=== PATIENT | female | born 1990 | race Caucasian/White ===

== ENCOUNTER 2017-06-15 13:10 | Emergency (ER) | payer MEDICAID ==
[~2017-06-15] VITALS: Ht 165.1 cm; Wt 97.1 kg
[2017-06-15 13:17] VITALS: BP_SYST 131; BP_SYST 136; BP_DIAS 76; BP_DIAS 81
--- NOTE | 2017-06-15 13:23 | NUR ---
PT AMBULATES TO CHAIR B
--- NOTE | 2017-06-15 13:34 | NUR ---
PATIENT PRESENTS TO ED WITH C/O LT FLANK, BACK PAIN X 2 DAYS WITH NUMBNESS/TINGLING ON LT LEG;DENIES N/V/D; DENIES BURNING/FREQUENT URINATION;SKIN IS PINK/WARM/DRY; AAOX4 WITH EVEN AND STEADY GAIT; LUNGS CLEAR BL; HR EVEN AND REGULAR; PT DENIES ANY FEVER, CP, SOB, OR COUGH AT THIS TIME; PATIENT STATES PAIN OF 10/10 AT THIS TIME;PATIENT POSITIONED FOR COMFORT; HOB ELEVATED; BEDRAILS UP X2; BED DOWN. ER MD MADE AWARE OF PT STATUS.
--- NOTE | 2017-06-15 13:52 | NUR ---
DR JOSEPH EVALUATING PT.
[2017-06-15 14:16] VITALS: BP 136/79
== END 2017-06-15 14:16 | disposition home or self-care (01) ==
LOC: MED 13:10
DX: S39.012A Strain of muscle, fascia and tendon of lower back, initial encounter (principal); Z90.89 Acquired absence of other organs; X50.0XXA Overexertion from strenuous movement or load, initial encounter; Y93.89 Activity, other specified; Y92.89 Other specified places as the place of occurrence of the external cause; Y99.8 Other external cause status
CPT/HCPCS: 81025; 99283

== ENCOUNTER 2018-06-06 18:45 | Emergency (ER) | payer MEDICAID, OTHER ==
[~2018-06-06] VITALS: Ht 165.1 cm; Wt 90.7 kg
[2018-06-06 18:53] VITALS: BP 135/92
--- NOTE | 2018-06-06 19:22 | NUR ---
PT AMBULATED TO BED 10
--- NOTE | 2018-06-06 19:40 | NUR ---
PT TO ED WITH C/O POSTERIOR THROBBING HEADACHE X 2 DAYS. PT REPORTS MILD NAUSEA. DENIES VOMTTING. PT DENIES ANY NEURO DEFECITS. PT IS ANSWERING QUESTIONS APPROPRIATLEY. PT PLACED INTO BED, PENDING MD MARAVILLA.
[2018-06-06] MEDS ORDERED: KETOROLAC 30 MG/ML VIAL IM ONE (20:25)
--- NOTE | 2018-06-06 21:00 | NUR ---
STREP SWAB COLLECTED AND WALKED DOWN TO LAB. SPECIMEN GIVEN TO ABDIRASHID.
[2018-06-06 21:41] VITALS: BP 131/86
--- NOTE | 2018-06-06 21:41 | NUR ---
Patient discharged with v/s stable. Written and verbal after care instructions given and explained. Patient alert, oriented and verbalized understanding of instructions. Ambulatory with steady gait. All questions addressed prior to discharge. ID band removed. Patient advised to follow up with PMD. Rx of ACETAMINOPHEN, NAPROSYN given. Patient educated on indication of medication including possible reaction and side effects. Opportunity to ask questions provided and answered.
== END 2018-06-06 21:41 | disposition home or self-care (01) ==
LOC: MED 18:45
DX: R51 Headache (principal); J06.9 Acute upper respiratory infection, unspecified; M54.2 Cervicalgia; G43.909 Migraine, unspecified, not intractable, without status migrainosus; Z90.49 Acquired absence of other specified parts of digestive tract
CPT/HCPCS: 81002; 81025; 87081; 96372; 99283; J1885

== ENCOUNTER 2018-08-06 21:28 | Emergency (ER) | payer OTHER ==
[~2018-08-06] VITALS: Ht 162.6 cm; Wt 100.7 kg
[2018-08-06 21:30] VITALS: BP 135/80
--- NOTE | 2018-08-06 21:32 | NUR ---
TO LOBBY A/W BED AMBULATORY
--- NOTE | 2018-08-06 22:51 | NUR ---
PT AMBULATED TO ER BED 5
--- NOTE | 2018-08-06 23:00 | NUR ---
28/F PRESENTS TO ED, C/O SHARP PAIN STARTING FROM R SIDE OF NECK RADIATING TO R JAW AND R SIDE OF HEAD, PT STATED THAT SHE WOKE UP WITH THE PAIN TODAY. NO OBVIOUS ABNORMALITY/BRUISING/REDNESS NOTED ON SITE. PT DENIES INJURY/TRAUMA. DENIES CP, SOB, N/V. AOX4, SKIN NORMAL WARM AND DRY, RR EVEN AND UNLABORED. DENIES MED HX OR RX. OTC PAIN MED WITHOUT RELIEF.
--- NOTE | 2018-08-06 23:10 | NUR ---
DR. CABRERA BEDSIDE EVALUATING PT
[2018-08-06 23:42] LABS: BASOPHILS % (AUTO) 0.5 % (0.0-2.0); EOSINOPHILS # (AUTO) 0.1 K/uL (0-0.4); EOSINOPHILS % (AUTO) 1.4 % (0.0-4.0); HEMATOCRIT 39.3 % (36-48); HEMOGLOBIN 13.4 g/dL (12.0-16.0); LYMPHOCYTES # (AUTO) 4.1 K/uL (2.5-16.5); LYMPHOCYTES % (AUTO) 42.5 % (20.5-51.1); MEAN CORPUSCULAR HEMOGLOBIN 30 pg (27-31); MEAN CORPUSCULAR HGB CONC 34 g/dL (33-37); MEAN CORPUSCULAR VOLUME 86.8 fL (80-94); MONOCYTES # (AUTO) 0.5 K/uL (0.8-1.0); NEUTROPHILS # (AUTO) 4.9 K/uL (1.8-7.7); NEUTROPHILS % (AUTO) 50.6 % (42.2-75.2); PLATELET COUNT (AUTO) 310 K/uL (140-450); RED BLOOD CELL COUNT(AUTO) 4.52 MIL/uL (4.20-5.40); RED CELL DISTRIBUTION WIDTH 13.2 % (11.6-13.7); WHITE BLOOD COUNT (AUTO) 9.7 K/uL (4.8-10.8)
[2018-08-06 23:49] LABS: ANION GAP 12.1 (8-16); CARBON DIOXIDE 26.3 mmol/L (21-32); CREATININE 0.8 mg/dL (0.6-1.3); POTASSIUM 3.4 mmol/L (3.5-5.1)
[2018-08-06 23:56] LABS: ALBUMIN 3.5 g/dL (3.4-5.0); TOTAL BILIRUBIN 0.5 mg/dL (0.0-1.0)
[2018-08-07 01:55] VITALS: BP 123/80
--- NOTE | 2018-08-07 01:55 | NUR ---
Patient discharged with v/s stable. Written and verbal after care instructions given and explained. Patient alert, oriented and verbalized understanding of instructions. Ambulatory with steady gait. All questions addressed prior to discharge. ID band removed. Patient advised to follow up with PMD. Rx of PENICILLIN VK, IBUPROFEN, NORCO given. Patient educated on indication of medication including possible reaction and side effects. Opportunity to ask questions provided and answered.
== END 2018-08-07 01:55 | disposition home or self-care (01) ==
LOC: MED 21:28
DX: R68.84 Jaw pain (principal)
CPT/HCPCS: 36415; 70487; 80053; 81025; 85025; 99284; Q9967

== ENCOUNTER 2018-09-16 17:00 | Emergency (ER) | payer OTHER ==
[~2018-09-16] VITALS: Ht 167.6 cm; Wt 99.8 kg
[2018-09-16 17:04] VITALS: BP 149/92
--- NOTE | 2018-09-16 17:15 | NUR ---
C/O SEVERE HEADACHE, N/V/D SINCE LAST NIGHT, NO MED HX. SKIN IS PINK/WARM/DRY; AAOX4 WITH EVEN AND STEADY GAIT; LUNGS CLEAR BL; HR EVEN AND REGULAR; PT DENIES ANY FEVER, CP, SOB, OR COUGH AT THIS TIME; PATIENT STATES PAIN OF 10/10 AT THIS TIME; VSS; PATIENT POSITIONED FOR COMFORT; HOB ELEVATED; BEDRAILS UP X2; BED DOWN. ER MD MADE AWARE OF PT STATUS.
[2018-09-16] MEDS ORDERED: NACL 0.9% 1,000 ML IV SCH (17:31)
[2018-09-16] MEDS ORDERED: NACL 0.9% 1,000 ML IV ONE (17:35)
[2018-09-16] MEDS ORDERED: KETOROLAC 30 MG/ML VIAL IVP ONE (17:35)
[2018-09-16] MEDS ORDERED: ACETAMINOPHEN EXTRA STRENGTH 500 MG TAB PO ONE (17:35)
[2018-09-16] MEDS ORDERED: cefTRIAXone 1,000 MG VIAL ONE (18:06)
[2018-09-16 18:19] LABS: BASOPHILS % (AUTO) 0.1 % (0.0-2.0); EOSINOPHILS % (AUTO) 0.2 % (0.0-4.0); HEMATOCRIT 40.1 % (36-48); HEMOGLOBIN 13.7 g/dL (12.0-16.0); LYMPHOCYTES # (AUTO) 1.6 K/uL (2.5-16.5); LYMPHOCYTES % (AUTO) 15.6 % (20.5-51.1); MEAN CORPUSCULAR HEMOGLOBIN 30 pg (27-31); MEAN CORPUSCULAR HGB CONC 34 g/dL (33-37); MEAN CORPUSCULAR VOLUME 87.1 fL (80-94); MONOCYTES # (AUTO) 0.4 K/uL (0.8-1.0); MONOCYTES % (AUTO) 3.6 % (1.7-9.3); NEUTROPHILS # (AUTO) 8.3 K/uL (1.8-7.7); NEUTROPHILS % (AUTO) 80.5 % (42.2-75.2); PLATELET COUNT (AUTO) 284 K/uL (140-450); RED CELL DISTRIBUTION WIDTH 12.8 % (11.6-13.7); WHITE BLOOD COUNT (AUTO) 10.4 K/uL (4.8-10.8)
--- NOTE | 2018-09-16 18:30 | NUR ---
PT STATED PAIN RELIEVED.
[2018-09-16 18:34] LABS: ALBUMIN 3.7 g/dL (3.4-5.0); ANION GAP 11.3 (8-16); CARBON DIOXIDE 27.1 mmol/L (21-32); CREATININE 0.8 mg/dL (0.6-1.3); POTASSIUM 3.4 mmol/L (3.5-5.1); TOTAL BILIRUBIN 0.8 mg/dL (0.0-1.0)
--- NOTE | 2018-09-16 19:09 | NUR ---
ENDORSED TO PM NURSE.
[2018-09-16 19:10] LABS: APPEARANCE,URINE CLEAR (CLEAR); BILIRUBIN,URINE NEGATIVE (NEGATIVE); BLOOD, URINE 3+ (NEGATIVE); COLOR,URINE YELLOW (YELLOW); LEUKOCYTE ESTERASE ,URINE NEGATIVE (NEGATIVE); NITRITE, URINE NEGATIVE (NEGATIVE); UGLUCOSE NEGATIVE (NEGATIVE)
[2018-09-16 19:22] LABS: RBC,URINE TOO NUMEROUS TO COUN /HPF (0-5); WBC,URINE 0-5 /HPF (0-5)
[2018-09-16 20:05] VITALS: BP 115/66
--- NOTE | 2018-09-16 20:05 | NUR ---
Patient discharged with v/s stable. Written and verbal after care instructions given and explained. Patient verbalized understanding. Ambulatory with steady gait. All questions addressed prior to discharge. Advised to follow up with PMD.
--- NOTE | 2018-09-16 20:05 | NUR ---
IV removed, catheter intact and site benign. Applied folded 4x4 gauze and tape to stop bleeding.
== END 2018-09-16 20:05 | disposition home or self-care (01) ==
LOC: MED 17:00
DX: R11.2 Nausea with vomiting, unspecified (principal); R19.7 Diarrhea, unspecified; R50.9 Fever, unspecified; R51 Headache
CPT/HCPCS: 36415; 71045; 80053; 81001; 83605; 85025; 87040; 87086; 96365; 96375; 99284; J0696; J1885; J7030; Q0092

== ENCOUNTER 2018-11-16 21:29 | Emergency (ER) | payer OTHER ==
[~2018-11-16] VITALS: Ht 165.1 cm; Wt 101.8 kg
[2018-11-16 21:51] VITALS: BP 132/87
--- NOTE | 2018-11-16 22:00 | NUR ---
PT AMBULATED TO WITH STEADY GAIT TO PROVIDE URINE SAMPLE. INSTRUCTED TO RETURN TO LOBBY. AWAITING AVAILABLE BED.
[2018-11-16 23:01] LABS: ANION GAP 11.3 (8-16); CARBON DIOXIDE 28.3 mmol/L (21-32); CREATININE 0.9 mg/dL (0.6-1.3); POTASSIUM 3.6 mmol/L (3.5-5.1)
--- NOTE | 2018-11-16 23:04 | NUR ---
PT AMBULATED TO BED #1
--- NOTE | 2018-11-16 23:13 | NUR ---
PT C/O VAGINAL BLEEDING X1 MONTH. LOWER ABD PAIN THAT RADIATES TO BACK X1 WEEK. 1 PAD Q3HRS. PT STATES SHE HAD CHILLS X3 DAYS NO FEVER. PT DENIES N/V. STATES DIARRHEA X6 YESTERDAY. ABD SOFT, ROUND, NONTENDER. PT TOOK IBURPROFEN AT 1200 TODAY W/ NO PAIN RELIEF. PT IN BED CALM, PLEASANT. VSS AT THIS TIME. MEDHX: DENIES ALLERGIES: DENIES
[2018-11-16 23:18] LABS: HEMOGLOBIN 13.1 g/dL (12.0-16.0)
[2018-11-16 23:23] LABS: BASOPHILS % (AUTO) 0.4 % (0.0-2.0); EOSINOPHILS # (AUTO) 0.2 K/uL (0-0.4); EOSINOPHILS % (AUTO) 1.7 % (0.0-4.0); HEMATOCRIT 39.1 % (36-48); LYMPHOCYTES # (AUTO) 5.2 K/uL (2.5-16.5); LYMPHOCYTES % (AUTO) 48.8 % (20.5-51.1); MEAN CORPUSCULAR HEMOGLOBIN 30 pg (27-31); MEAN CORPUSCULAR HGB CONC 34 g/dL (33-37); MEAN CORPUSCULAR VOLUME 88.9 fL (80-94); MONOCYTES # (AUTO) 0.4 K/uL (0.8-1.0); MONOCYTES % (AUTO) 3.8 % (1.7-9.3); NEUTROPHILS # (AUTO) 4.8 K/uL (1.8-7.7); NEUTROPHILS % (AUTO) 45.3 % (42.2-75.2); PLATELET COUNT (AUTO) 324 K/uL (140-450); RED CELL DISTRIBUTION WIDTH 13.4 % (11.6-13.7); WHITE BLOOD COUNT (AUTO) 10.6 K/uL (4.8-10.8)
[2018-11-16] MEDS ORDERED: ONDANSETRON 4 MG ODT PO ONE (23:55)
[2018-11-16] MEDS ORDERED: KETOROLAC 60 MG/2 ML VIAL IM ONE (23:55)
--- NOTE | 2018-11-17 00:25 | NUR ---
Patient discharged with v/s stable. Written and verbal after care instructions given and explained. Patient alert, oriented and verbalized understanding of instructions. Ambulatory with to home. All questions addressed prior to discharge. ID band removed. Patient advised to follow up with PMD. Rx of PROVERA, MOTRIN, NORCO, ZOFRAN given. Patient educated on indication of medication including possible reaction and side effects. Opportunity to ask questions provided and answered.
[2018-11-17 00:27] VITALS: BP 132/87
== END 2018-11-17 00:27 | disposition home or self-care (01) ==
LOC: MED 21:29
DX: N93.8 Other specified abnormal uterine and vaginal bleeding (principal); R11.2 Nausea with vomiting, unspecified; Z90.89 Acquired absence of other organs
CPT/HCPCS: 36415; 80048; 81002; 81025; 85025; 96372; 99283; J1885; Q0162

== ENCOUNTER 2018-12-01 18:33 | Emergency (ER) | payer OTHER ==
[~2018-12-01] VITALS: Ht 165.1 cm; Wt 98.4 kg
[2018-12-01 18:48] VITALS: BP 132/93
--- NOTE | 2018-12-01 19:06 | NUR ---
RECEIVED REPORT FROM KALEB ARIZMENDI, PT IN BED RESTING IN STABLE CONDITION AT THIS TIME. WILL CONTINUE TO MONITOR CLOSELY.
--- NOTE | 2018-12-01 19:06 | NUR ---
28/F PRESENTS TO ED, C/O VAGINAL BLEEDING X2 MONTHS, WORSENING WITH HEAVY BLEEDING X2 DAYS (REPORTS APPROX 1 PAD [id number]). PT REPORTS MILD LIGHTHEADEDNESS WHEN AMBULATING. REPORTS LOWER ABD PAIN RADIATING TO LOWER BACK PAIN. DENIES FEVER, CP, SOB, N/V/D, CONSTIPATION OR DYSURIA. PT AWAKE AND ALERT, SKIN NORMAL COLOR WARM AND DRY, RR EVEN AND UNLABORED. HX APPENDECTOMY RX NORCO
--- NOTE | 2018-12-01 19:10 | NUR ---
Dr. Smith examining patient.
[2018-12-01 19:45] LABS: BASOPHILS % (AUTO) 0.3 % (0.0-2.0); EOSINOPHILS # (AUTO) 0.1 K/uL (0-0.4); EOSINOPHILS % (AUTO) 1.2 % (0.0-4.0); HEMATOCRIT 36.6 % (36-48); HEMOGLOBIN 12.3 g/dL (12.0-16.0); LYMPHOCYTES # (AUTO) 4.7 K/uL (2.5-16.5); LYMPHOCYTES % (AUTO) 42.1 % (20.5-51.1); MEAN CORPUSCULAR HEMOGLOBIN 30 pg (27-31); MEAN CORPUSCULAR HGB CONC 34 g/dL (33-37); MEAN CORPUSCULAR VOLUME 88.2 fL (80-94); MONOCYTES # (AUTO) 0.4 K/uL (0.8-1.0); NEUTROPHILS # (AUTO) 5.8 K/uL (1.8-7.7); NEUTROPHILS % (AUTO) 52.4 % (42.2-75.2); PLATELET COUNT (AUTO) 303 K/uL (140-450); RED BLOOD CELL COUNT(AUTO) 4.15 MIL/uL (4.20-5.40); RED CELL DISTRIBUTION WIDTH 13.4 % (11.6-13.7); WHITE BLOOD COUNT (AUTO) 11.1 K/uL (4.8-10.8)
[2018-12-01 20:05] LABS: PROTHROMBIN TIME 9.5 secs (10.8-13.4)
[2018-12-01 20:17] LABS: ANION GAP 12.8 (8-16); CARBON DIOXIDE 26.8 mmol/L (21-32); CREATININE 0.8 mg/dL (0.6-1.3); POTASSIUM 3.6 mmol/L (3.5-5.1)
[2018-12-01 20:18] LABS: ALBUMIN 3.5 g/dL (3.4-5.0); TOTAL BILIRUBIN 0.5 mg/dL (0.0-1.0)
--- NOTE | 2018-12-01 20:31 | NUR ---
Ultrasound at bedside.
[2018-12-01] MEDS ORDERED: KETOROLAC 30 MG/ML VIAL IM ONE (21:20)
[2018-12-01 21:35] LABS: BILIRUBIN,URINE NEGATIVE (NEGATIVE); BLOOD, URINE 3+ (NEGATIVE); LEUKOCYTE ESTERASE ,URINE TRACE (NEGATIVE); NITRITE, URINE NEGATIVE (NEGATIVE); PH,URINE 6.5 (5.0-9.0); UGLUCOSE NEGATIVE (NEGATIVE)
[2018-12-01 21:36] LABS: APPEARANCE,URINE BLOODY (CLEAR); COLOR,URINE RED (YELLOW)
[2018-12-01 21:37] LABS: RBC,URINE TOO NUMEROUS TO COUN /HPF (0-5); WBC,URINE NONE SEEN /HPF (0-5)
--- NOTE | 2018-12-01 22:50 | NUR ---
Dr. West examining patient.
[2018-12-01 23:09] VITALS: BP 125/89
--- NOTE | 2018-12-01 23:09 | NUR ---
PT DISCHARGED WITH PAPERWORK. RX PROVERA. EDUCATED PT REGARDING MEDICATIONS AND S/E. EDUCATED PT REGARDING D/C DIAGNOSIS AND INSTRUCTIONS. PT VERBALIZED UNDERSTANDING OF TEACHING. TOLD PT TO FOLLOW UP WITH PCP AND WHEN TO RETURN TO ED. PT VSS. ALL QUESTIONS ANSWERED.
== END 2018-12-01 23:09 | disposition home or self-care (01) ==
LOC: MED 18:33
DX: N93.8 Other specified abnormal uterine and vaginal bleeding (principal); Z90.89 Acquired absence of other organs
CPT/HCPCS: 36415; 76830; 80053; 81001; 84702; 85025; 85610; 85730; 87210; 96372; 99284; J1885; Q0092

== ENCOUNTER 2019-04-26 06:59 | Emergency (ER) | payer MEDICAID, OTHER ==
[~2019-04-26] VITALS: Ht 165.1 cm; Wt 95.3 kg
[2019-04-26 07:00] VITALS: BP 125/84
--- NOTE | 2019-04-26 07:00 | NUR ---
to bed # 04 ambulatory
--- NOTE | 2019-04-26 07:15 | NUR ---
bib self c/o lower back pain, neck , head pain, for 2 days, s/p fall from stairs last thursday , no loc nor vomiting. PATIENT STATES PAIN OF 10/10 AT THIS TIME. PATIENT POSITIONED FOR COMFORT; HOB ELEVATED; BEDRAILS UP X1; BED DOWN. ER MD MADE AWARE OF PT STATUS.
[2019-04-26] MEDS ORDERED: traMADol 50 MG TAB PO ONE (07:45)
[2019-04-26] MEDS ORDERED: KETOROLAC 60 MG/2 ML VIAL IM ONE (07:45)
--- NOTE | 2019-04-26 08:05 | NUR ---
PT RETURNED FROM RAD VIA W/C
[2019-04-26 08:07] LABS: BILIRUBIN,URINE NEGATIVE (NEGATIVE); BLOOD, URINE 2+ (NEGATIVE); LEUKOCYTE ESTERASE ,URINE NEGATIVE (NEGATIVE); NITRITE, URINE NEGATIVE (NEGATIVE); UGLUCOSE NEGATIVE (NEGATIVE)
--- NOTE | 2019-04-26 10:10 | NUR ---
CALLED LAB FOR UEINE RESULT.
--- NOTE | 2019-04-26 10:34 | NUR ---
CALLED LAB FOR UEINE RESULT.
--- NOTE | 2019-04-26 10:41 | NUR ---
Patient discharged with v/s stable. Written and verbal after care instructions given and explained. Patient alert, oriented and verbalized understanding of instructions. Ambulatory with steady gait. All questions addressed prior to discharge. ID band removed. Patient advised to follow up with PMD. Rx of KETOROLAC & TRAMADOL given. Patient educated on indication of medication including possible reaction and side effects. Opportunity to ask questions provided and answered.
[2019-04-26 10:43] VITALS: BP 125/84
[2019-04-26 10:48] LABS: APPEARANCE,URINE HAZY (CLEAR); COLOR,URINE YELLOW (YELLOW)
[2019-04-26 10:52] LABS: RBC,URINE 0-5 /HPF (0-5); WBC,URINE 0-5 /HPF (0-5)
== END 2019-04-26 10:41 | disposition home or self-care (01) ==
LOC: MED 06:59
DX: S33.5XXA Sprain of ligaments of lumbar spine, initial encounter (principal); S23.3XXA Sprain of ligaments of thoracic spine, initial encounter; W10.9XXA Fall (on) (from) unspecified stairs and steps, initial encounter; Y93.89 Activity, other specified; Y92.098 Other place in other non-institutional residence as the place of occurrence of the external cause; Y99.8 Other external cause status
CPT/HCPCS: 71046; 72040; 72100; 81001; 81025; 96372; 99284; J1885

== ENCOUNTER 2020-04-15 10:04 | Emergency (ER) | payer MEDICAID ==
[~2020-04-15] VITALS: Ht 165.1 cm; Wt 90.7 kg
[2020-04-15 10:17] VITALS: BP 123/87
--- NOTE | 2020-04-15 10:42 | NUR ---
29 YEAR OLD FEMALE COMPLAINS OF PAIN ON JAW X 1 DAY. PATIENT STATED "ROUGH PLAYING" WITH STEPSON THIS MORNING WHO ACCIDENTLY HIT HER ON THE JAW. PAIN 10/10, CONTINUOUS, LOCAL, DULL. OPEN WOUND NOTED, NO DRAINAGE, SURROUNDING SKIN SOMEWHAT RED, INTACT. LAST TETANUS RECEIVED 2 YEARS AGO PER PATIENT. AO4, BREATHING EVEN AND UNLABORED, SKIN WARM AND DRY. BED IN LOWETS POSITION, LOCKED, X1 SIDERAIL UP. PMH - DENIED NKA
[2020-04-15] MEDS ORDERED: KETOROLAC 30 MG/ML VIAL IM ONE (10:45)
--- NOTE | 2020-04-15 11:06 | NUR ---
PATIENT TAKEN BY RADIOLOGY VIA WHEELCHAIR
--- NOTE | 2020-04-15 12:44 | NUR ---
Patient discharged with v/s stable. Written and verbal after care instructions given and explained. Patient alert, oriented and verbalized understanding of instructions. Ambulatory with steady gait. All questions addressed prior to discharge. ID band removed. Patient advised to follow up with PMD. Rx of Motrin was given. Patient educated on indication of medication including possible reaction and side effects. Opportunity to ask questions provided and answered.
[2020-04-15 12:45] VITALS: BP 123/87
== END 2020-04-15 12:44 | disposition home or self-care (01) ==
LOC: MED 10:04
DX: S00.83XA Contusion of other part of head, initial encounter (principal); Y04.0XXA Assault by unarmed brawl or fight, initial encounter; Y93.89 Activity, other specified; Y92.89 Other specified places as the place of occurrence of the external cause; Y99.8 Other external cause status
CPT/HCPCS: 70110; 96372; 99283; J1885

== ENCOUNTER 2020-09-24 13:22 | Emergency (ER) | payer MEDICAID, SELFPAY ==
[~2020-09-24] VITALS: Ht 165.1 cm; Wt 86.2 kg
[2020-09-24 13:47] VITALS: BP 117/76
--- NOTE | 2020-09-24 13:50 | NUR ---
PT IN TENT FOR TRIAGE.
--- NOTE | 2020-09-24 13:55 | NUR ---
30 Y/O FEMALE C/O N/V/D X1DAY, STATES SHE HAS VOMITED 5 TIMES PRIOR TO ARRIVAL. PT STATES ABD PAIN 10/10 DESCRIBES CRAMPING. ABDOMEN IS SOFT, ROUND, NON-DISTENDED BOWEL SOUNDS ACTIVE X4 LAST BM 09/24/20. DENIES FEVER/CHILLS. DENIES PMH NKA
[2020-09-24] MEDS ORDERED: NACL 0.9% 1,000 ML IV ONE ×2 (13:57→14:00)
--- NOTE | 2020-09-24 14:12 | NUR ---
PT TAKEN TO A FOR FURTHER TREATMENT.
--- NOTE | 2020-09-24 14:17 | NUR ---
Reynaldo hardin walked to lab, handed to CPT Maldonado.
[2020-09-24] MEDS ORDERED: ONDANSETRON 4 MG/2 ML VIAL ONE (14:18)
[2020-09-24] MEDS ORDERED: ONDANSETRON 4 MG/2 ML VIAL IVP ONE (14:20)
[2020-09-24] MEDS ORDERED: KETOROLAC 30 MG/ML VIAL IVP ONE (14:50)
--- NOTE | 2020-09-24 14:58 | NUR ---
PT TAKEN TO U/S VIA W/C.
--- NOTE | 2020-09-24 15:56 | NUR ---
PT CURRENTLY RESTING BEDSIDE WITH EYES OPEN AND ON PHONE. PT PROVIDED WITH PAIN MEDIACTIONS. BED IN LOWEST POSITION WITH SIDERAIL X2UP AND LOCKED. VITAL SIGNS STABLE. WILL CONTINUE TO MONITOR
[2020-09-24 16:12] LABS: BASOPHILS % (AUTO) 0.2 % (0.0-2.0); HEMATOCRIT 37.4 % (36-48); HEMOGLOBIN 12.8 g/dL (12.0-16.0); LYMPHOCYTES # (AUTO) 1.1 K/uL (2.5-16.5); LYMPHOCYTES % (AUTO) 10.2 % (20.5-51.1); MEAN CORPUSCULAR HEMOGLOBIN 30 pg (27-31); MEAN CORPUSCULAR HGB CONC 34 g/dL (33-37); MEAN CORPUSCULAR VOLUME 88.6 fL (80-94); MONOCYTES # (AUTO) 0.4 K/uL (0.8-1.0); NEUTROPHILS # (AUTO) 9.3 K/uL (1.8-7.7); NEUTROPHILS % (AUTO) 85.6 % (42.2-75.2); PLATELET COUNT (AUTO) 296 K/uL (140-450); RED BLOOD CELL COUNT(AUTO) 4.22 MIL/uL (4.20-5.40); RED CELL DISTRIBUTION WIDTH 12.7 % (11.6-13.7); WHITE BLOOD COUNT (AUTO) 10.9 K/uL (4.8-10.8)
[2020-09-24 16:30] LABS: ALBUMIN 3.3 g/dL (3.4-5.0); ANION GAP 11.3 (8-16); CARBON DIOXIDE 27.3 mmol/L (21-32); CREATININE 0.8 mg/dL (0.6-1.3); POTASSIUM 3.6 mmol/L (3.5-5.1); TOTAL BILIRUBIN 1.1 mg/dL (0.0-1.0)
--- NOTE | 2020-09-24 16:43 | NUR ---
ASSUMING TEMPORARY CARE OF THIS PATIENT WHILE PRIMARY NURSE IN A NOURISHMENT BREAK. FLUID BOLUS COMPLETE. UP TO BR TO PROVIDE URINE. AMBULATED WITH UPRIGHT STEADY GAIT, REPORTS PAIN RESOLVING.
[2020-09-24] MEDS ORDERED: ONDA-24 PO (16:52)
[2020-09-24 17:32] VITALS: BP 121/68
== END 2020-09-24 17:33 | disposition home or self-care (01) ==
LOC: MED 13:22
DX: K52.9 Noninfective gastroenteritis and colitis, unspecified (principal)
CPT/HCPCS: 36415; 76705; 80053; 81002; 81025; 83690; 85025; 87426; 96361; 96374; 96375; 99284; J1885; J2405; J7030

== ENCOUNTER 2021-04-29 20:37 | Emergency (ER) | payer MEDICAID, SELFPAY ==
[~2021-04-29] VITALS: Ht 165.1 cm; Wt 101.6 kg
[~2021-04-29 20:37] MED LIST: ONDA-188 PO
[2021-04-29 21:00] VITALS: BP 120/85
--- NOTE | 2021-04-29 21:05 | NUR ---
PATIENT TO THE BATHROOM FOR URINE COLLECTION
--- NOTE | 2021-04-29 22:36 | NUR ---
EXAMINED BY ERMD IN TRIAGE.
[2021-04-29] MEDS ORDERED: KETOROLAC 30 MG/ML VIAL IM ONE (23:10)
[2021-04-29] MEDS ORDERED: ACETAMINOPHEN EXTRA STRENGTH 500 MG TAB PO ONE (23:10)
[2021-04-29] MEDS ORDERED: METOCLOPRAMIDE 10 MG TAB PO ONE (23:10)
[2021-04-29] MEDS ORDERED: IBUP-2213 PO (23:41)
[2021-04-29] MEDS ORDERED: METO-485 PO (23:41)
[2021-04-29] MEDS ORDERED: ACET-10509 PO (23:41)
[2021-04-29] MEDS ORDERED: DIPH25TA53 PO (23:41)
[2021-04-29 23:49] VITALS: BP 135/71
--- NOTE | 2021-04-29 23:51 | NUR ---
Patient discharged with v/s stable. Written and verbal after care instructions given and explained. Patient alert, oriented and verbalized understanding of instructions. Ambulatory with steady gait. All questions addressed prior to discharge. ID band removed. Patient advised to follow up with PMD. Rx of ACETAMINOPHEN, BENADRYL, IBUPROFEN, REGLAN given. Patient educated on indication of medication including possible reaction and side effects. Opportunity to ask questions provided and answered.
--- NOTE | 2021-04-29 23:52 | NUR ---
PT WAS INSTRUCTED TO REMAIN IN ER FOR 20 MINS TO MONITOR FOR MEDICATION ADVERSE REACTIONS.
== END 2021-04-29 23:49 | disposition home or self-care (01) ==
LOC: MED 20:37
DX: G43.909 Migraine, unspecified, not intractable, without status migrainosus (principal)
CPT/HCPCS: 81002; 81025; 96372; 99284; J1885; J8597; Q0163

== ENCOUNTER 2021-08-24 20:54 | Emergency (ER) | payer MEDICAID ==
[~2021-08-24] VITALS: Ht 165.1 cm; Wt 100.2 kg
[~2021-08-24 20:54] MED LIST changes: +ACET-10509 PO; +DIPH25TA53 PO; +IBUP-2213 PO; +METO-485 PO
[2021-08-24 21:27] VITALS: BP 125/79
--- NOTE | 2021-08-24 21:29 | NUR ---
PT AMBULATED TO BED #7
--- NOTE | 2021-08-24 22:00 | NUR ---
31/F BIB SELF C/C LOWER BACK PAIN RAD TO LOWER EXTREMITIES [id number]. PATIENT STATED THAT PAIN IS SHARP 10/10. PATIETN TOOK TYLENOL WITH SOME RELIEF IN THE AM, BUT PAIN IS NOT TOLERABLE AT THIS TIME. RR APPEAR TO BE EVEN AND UNLABORED. PATIETN DENIES SOB/CP/N/V/D/URINARY SYMPTOMS. PLACED IN GOWN. BED LOW AND LOCKED. ALL NEEDS MET. PMHX DENIES MEDS DENIES NKA
--- NOTE | 2021-08-24 22:10 | NUR ---
MD LUONG AT BEDSIDE
[2021-08-24] MEDS ORDERED: IBUP-2218 PO (22:58)
[2021-08-24] MEDS ORDERED: GABA-636 PO (22:58)
[2021-08-24] MEDS ORDERED: KETOROLAC 60 MG/2 ML VIAL IM ONE (23:00)
[2021-08-24] MEDS ORDERED: GABAPENTIN 300 MG CAP PO ONE (23:00)
--- NOTE | 2021-08-24 23:03 | NUR ---
PATIETN SITTING IN BED. ALL NEEDS MET
--- NOTE | 2021-08-24 23:30 | NUR ---
YISEL STATED PAIN DECREASED 6/10, BUT TOLERABLE AT THIS TIME.
[2021-08-24 23:45] VITALS: BP 125/79
--- NOTE | 2021-08-24 23:45 | NUR ---
Patient discharged with v/s stable. Written and verbal after care instructions given ON SCIATICA and explained. Patient alert, oriented and verbalized understanding of instructions. Ambulatory with steady gait. All questions addressed prior to discharge. ID band removed. Patient advised to follow up with PMD. Rx of GABAPENTIN AND IBUPROFEN given.
--- NOTE | 2021-08-24 23:57 | NUR ---
The patient's care was reviewed and supervised by Nora Ospina RN.
== END 2021-08-24 23:45 | disposition home or self-care (01) ==
LOC: MED 20:54
DX: M54.50 Low back pain, unspecified (principal); Z79.1 Long term (current) use of non-steroidal anti-inflammatories (NSAID); Z79.899 Other long term (current) drug therapy
CPT/HCPCS: 81002; 81025; 96372; 99283; J1885

== ENCOUNTER 2022-03-20 19:30 | Emergency (ER) | payer MEDICAID ==
[~2022-03-20] VITALS: Ht 165.1 cm; Wt 100.2 kg
[~2022-03-20 19:30] MED LIST changes: +GABA-636 PO; +IBUP-2218 PO
[2022-03-20 19:39] VITALS: BP 141/90
--- NOTE | 2022-03-20 22:41 | NUR ---
PT AMB TO ER BED 08
--- NOTE | 2022-03-20 22:41 | NUR ---
Received patient to ER w/ c/o right lateral lower thigh hematoma "ongoing for years but worse over past 2-3 weeks" now c/o shooting pain radiating down entire leg. Denies any pmh or trauma. Introduced self to patient, positioned for comfort. Bed to low position sr up, continue to monitor. No neuro focal deficits noted on assesment. Rates pain 10/10.
[2022-03-21] MEDS ORDERED: KETOROLAC 30 MG/ML VIAL IM ONE (00:05)
--- NOTE | 2022-03-21 00:15 | NUR ---
patient to xray [facility] w/ library acquisitions technician.
--- NOTE | 2022-03-21 00:30 | NUR ---
Patient returned from xray via gurney, patient medicated as ordered w/ toradol 30mg im to right deltoid. Will observe for any adverse reaction. bed to low position sr up. continue to monitor.
--- NOTE | 2022-03-21 00:41 | NUR ---
u/s tech w/ machine at bedside.
--- NOTE | 2022-03-21 01:01 | NUR ---
u/s completed. repositioned patient for comfort. Bed to low position sr up. continue to monitor.
--- NOTE | 2022-03-21 01:33 | NUR ---
no adverse reaction noted to medication, pain rated 4/10. Bed to low position, sr up. patient resting comfortably at this time in no acute distress. positioned for comfort. continue to monitor.
[2022-03-21] MEDS ORDERED: NAPR-54 PO (02:21)
--- NOTE | 2022-03-21 02:53 | NUR ---
PT GIVEN CRUTCHES, PATIENT DID NOT REQUIRE DEMONSTRATION HAS PRIOR KNOWLEDGE OF HOW TO USE.
[2022-03-21 02:57] VITALS: BP 122/72
== END 2022-03-21 02:57 | disposition home or self-care (01) ==
LOC: MED 19:30
DX: M79.604 Pain in right leg (principal); Z79.899 Other long term (current) drug therapy
CPT/HCPCS: 73552; 93971; 96372; 99285; J1885; Q0092

== ENCOUNTER 2022-05-12 07:05 | Emergency (ER) | payer MEDICAID ==
[~2022-05-12] VITALS: Ht 165.1 cm; Wt 100.7 kg
[~2022-05-12 07:05] MED LIST changes: +NAPR-54 PO
[2022-05-12 07:11] VITALS: BP 124/76
--- NOTE | 2022-05-12 07:20 | NUR ---
Patient taken to bed 12.
[2022-05-12] MEDS ORDERED: NACL 0.9% 1,000 ML IV ONE (07:30)
[2022-05-12] MEDS ORDERED: ONDANSETRON 4 MG/2 ML VIAL IVP ONE (07:30)
[2022-05-12 07:47] LABS: BASOPHILS % (AUTO) 0.6 % (0.0-2.0); EOSINOPHILS # (AUTO) 0.1 K/uL (0-0.4); EOSINOPHILS % (AUTO) 1.2 % (0.0-4.0); HEMATOCRIT 39.2 % (36-48); HEMOGLOBIN 13.5 g/dL (12.0-16.0); LYMPHOCYTES # (AUTO) 2.8 K/uL (2.5-16.5); LYMPHOCYTES % (AUTO) 38.3 % (20.5-51.1); MEAN CORPUSCULAR HEMOGLOBIN 30 pg (27-31); MEAN CORPUSCULAR HGB CONC 34 g/dL (33-37); MEAN CORPUSCULAR VOLUME 86.9 fL (80-94); MONOCYTES # (AUTO) 0.3 K/uL (0.8-1.0); MONOCYTES % (AUTO) 3.7 % (1.7-9.3); NEUTROPHILS # (AUTO) 4.1 K/uL (1.8-7.7); NEUTROPHILS % (AUTO) 56.2 % (42.2-75.2); PLATELET COUNT (AUTO) 338 K/uL (140-450); RED BLOOD CELL COUNT(AUTO) 4.51 MIL/uL (4.20-5.40); RED CELL DISTRIBUTION WIDTH 13.3 % (11.6-13.7); WHITE BLOOD COUNT (AUTO) 7.3 K/uL (4.8-10.8)
[2022-05-12 08:06] LABS: BILIRUBIN,URINE 1+ (NEGATIVE); BLOOD, URINE 2+ (NEGATIVE); LEUKOCYTE ESTERASE ,URINE TRACE (NEGATIVE); NITRITE, URINE POSITIVE (NEGATIVE); UGLUCOSE NEGATIVE (NEGATIVE)
[2022-05-12 08:06] LABS: ALBUMIN 3.7 g/dL (3.4-5.0); CARBON DIOXIDE 23.2 mmol/L (21-32); CREATININE 0.8 mg/dL (0.6-1.3); POTASSIUM 3.2 mmol/L (3.5-5.1); TOTAL BILIRUBIN 0.4 mg/dL (0.0-1.0)
--- NOTE | 2022-05-12 08:10 | NUR ---
32/F PRESENTS TO ED WITH C/O 10/10 LOWER ABDOMINAL CRAMPING AND N/V SINCE LAST NIGHT. PATIENT REPORTS SHE TOOK TYLENOL WITH NO RELIEF OF PAIN, DENIES TAKING MEDS FOR N/V. PATIENT REPORTS SHE INITIALLY RELATED PAIN TO PERIOD CRAMPS BUT STATES PAIN HAS BECOME MORE SEVERE THROUGHOUT THE NIGHT. PATIENT DENIES CP, SOB, FEVERS OR RECENT SICK CONTACTS.
[2022-05-12 08:14] LABS: APPEARANCE,URINE CLOUDY (CLEAR); COLOR,URINE BLOODY (YELLOW); RBC,URINE 50-80 /HPF (0-5); WBC,URINE 0-5 /HPF (0-5)
[2022-05-12] MEDS ORDERED: KETOROLAC 30 MG/ML VIAL IVP ONE (08:15)
[2022-05-12] MEDS ORDERED: DICYCLOMINE HCL LIQUID 10 MG/5 ML UDC PO ONE (08:15)
[2022-05-12] MEDS ORDERED: POTASSIUM CHLORIDE 10 MEQ TABER PO ONE (08:25)
[2022-05-12] MEDS ORDERED: cephALEXin 500 MG CAP PO ONE (08:25)
[2022-05-12] MEDS ORDERED: BISM262C52 PO (10:13)
[2022-05-12] MEDS ORDERED: ONDA-188 SL (10:13)
[2022-05-12] MEDS ORDERED: CEPH-588 PO (10:13)
[2022-05-12] MEDS ORDERED: BEN10 PO (10:13)
--- NOTE | 2022-05-12 10:20 | NUR ---
PATIENT RESTING IN BED WITH EYES OPEN, ON BEDSIDE INTERPRETER. REPORTS PAIN AND N/V HAS SINCE RESOLVED S/P MEDS. ALL NEEDS MET AT THIS TIME.
[2022-05-12 10:40] VITALS: BP 118/70
--- NOTE | 2022-05-12 10:40 | NUR ---
IV removed, catheter intact and site benign. Applied folded 4x4 gauze and tape to stop bleeding.
--- NOTE | 2022-05-12 10:40 | NUR ---
Patient discharged with v/s stable. Written and verbal after care instructions ABOUT UTI, ABD PAIN, FOOD POISONING given and explained. Patient alert, oriented and verbalized understanding of instructions. Ambulatory with steady gait. All questions addressed prior to discharge. ID band removed. Patient advised to follow up with PMD. Rx of BENTYL, PEPTO-BISMOL, KEFLEX AND ZOFRAN ODT given. Patient educated on indication of medication including possible reaction and side effects. Opportunity to ask questions provided and answered.
== END 2022-05-12 10:40 | disposition home or self-care (01) ==
LOC: MED 07:05
DX: A08.4 Viral intestinal infection, unspecified (principal); N39.0 Urinary tract infection, site not specified; E87.6 Hypokalemia; Z79.899 Other long term (current) drug therapy; Z90.49 Acquired absence of other specified parts of digestive tract
CPT/HCPCS: 36415; 80053; 81001; 81025; 83690; 85025; 96361; 96374; 96375; 99284; J1885; J2405; J7030

== ENCOUNTER 2022-07-25 09:04 | Emergency (ER) | payer MEDICAID ==
[~2022-07-25] VITALS: Ht 165.1 cm; Wt 97.5 kg
[~2022-07-25 09:04] MED LIST changes: +BEN10 PO; +BISM262C52 PO; +CEPH-588 PO; +ONDA-188 SL
[2022-07-25 09:08] VITALS: BP 137/89
--- NOTE | 2022-07-25 09:13 | NUR ---
pt ambulatory to bed 05.
[2022-07-25] MEDS ORDERED: KETOROLAC 30 MG/ML VIAL IM ONE (10:20)
--- NOTE | 2022-07-25 10:20 | NUR ---
MAJO WRAP TO R KNEE + CMS
[2022-07-25] MEDS ORDERED: DICL20GE TP (10:42)
[2022-07-25] MEDS ORDERED: NAPR-54 PO (10:42)
[2022-07-25 10:55] VITALS: BP 108/69
--- NOTE | 2022-07-25 10:55 | NUR ---
Patient discharged with v/s stable. Written and verbal after care instructions given. Patient alert, oriented and verbalized understanding of instructions. Ambulatory with steady gait. All questions addressed prior to discharge. ID band removed. Patient advised to follow up with PMD. Rx of Diclofenac and Naproxen given. Opportunity to ask questions provided and answered. WORK NOTE HANDED TO PATIENT.
== END 2022-07-25 10:55 | disposition home or self-care (01) ==
LOC: MED 09:04
DX: M25.561 Pain in right knee (principal); Z79.899 Other long term (current) drug therapy
CPT/HCPCS: 81025; 96372; 99283; J1885

== ENCOUNTER 2022-10-08 07:32 | Emergency (ER) | payer MEDICAID ==
[~2022-10-08] VITALS: Ht 165.1 cm; Wt 97.5 kg
[~2022-10-08 07:32] MED LIST changes: +DICL20GE TP
[2022-10-08 07:42] VITALS: BP 124/79; PULSE 88; RESP 16; TEMP 98.1; O2SAT 98
[2022-10-08] MEDS ORDERED: ERYT2GEL22 TP (09:28)
== END 2022-10-08 09:52 | disposition home or self-care (01) ==
LOC: MED 07:32
DX: Z90.49 Acquired absence of other specified parts of digestive tract (principal); H00.011 Hordeolum externum right upper eyelid; Z79.899 Other long term (current) drug therapy; Z79.2 Long term (current) use of antibiotics; Z79.1 Long term (current) use of non-steroidal anti-inflammatories (NSAID)
CPT/HCPCS: 99283

== ENCOUNTER 2022-10-27 12:22 | Emergency (ER) | payer MEDICAID ==
[~2022-10-27] VITALS: Ht 165.1 cm; Wt 98.4 kg
[~2022-10-27 12:22] MED LIST changes: +ERYT2GEL22 TP
[2022-10-27 12:33] VITALS: BP 131/78; PULSE 90; RESP 18; TEMP 98.4; O2SAT 97
[2022-10-27] MEDS ORDERED: SULF-59 PO (13:08)
[2022-10-27] MEDS ORDERED: KETOROLAC 30 MG/ML VIAL IM ONE (13:30)
[2022-10-27 13:44] LABS: APPEARANCE,URINE CLEAR (CLEAR); BILIRUBIN,URINE NEGATIVE (NEGATIVE); BLOOD, URINE 1+ (NEGATIVE); COLOR,URINE YELLOW (YELLOW); LEUKOCYTE ESTERASE ,URINE NEGATIVE (NEGATIVE); NITRITE, URINE NEGATIVE (NEGATIVE); PH,URINE 7.5 (5.0-9.0); PROTEIN,URINE NEGATIVE (NEGATIVE); UGLUCOSE NEGATIVE (NEGATIVE)
[2022-10-27 13:54] LABS: BACTERIA,URINE 0-2 /HPF (None Seen); RBC,URINE 0-5 /HPF (0-5); WBC,URINE 0-5 /HPF (0-5)
[2022-10-27 13:55] LABS: SQUAMOUS EPITHELIAL CELL,UR 50-80 /LPF (0-3 (FEW))
[2022-10-27] MEDS ORDERED: METR-520 PO (14:05)
== END 2022-10-27 14:23 | disposition home or self-care (01) ==
LOC: MED 12:22
DX: N75.0 Cyst of Bartholin's gland (principal); N76.0 Acute vaginitis; B96.89 Other specified bacterial agents as the cause of diseases classified elsewhere; Z79.899 Other long term (current) drug therapy
CPT/HCPCS: 81001; 81025; 87210; 96372; 99284; J1885

== ENCOUNTER 2022-12-01 08:00 | Emergency (ER) | payer MEDICAID ==
[~2022-12-01] VITALS: Ht 165.1 cm; Wt 98.4 kg
[~2022-12-01 08:00] MED LIST changes: +METR-520 PO; +SULF-59 PO
[2022-12-01 08:05] VITALS: BP 120/75; PULSE 81; RESP 16; TEMP 97.4; O2SAT 98
[2022-12-01] MEDS ORDERED: KETOROLAC 30 MG/ML VIAL IVP ONE (08:20)
[2022-12-01] MEDS ORDERED: ONDANSETRON 4 MG/2 ML VIAL IVP ONE (08:20)
[2022-12-01] MEDS ORDERED: NACL 0.9% 1,000 ML IV ONE (08:20)
[2022-12-01 08:44] LABS: BASOPHILS # (AUTO) 0.1 K/uL (0.00-0.22); BASOPHILS % (AUTO) 0.9 % (0.0-2.0); EOSINOPHILS # (AUTO) 0.1 K/uL (0-0.4); EOSINOPHILS % (AUTO) 1.4 % (0.0-4.0); HEMATOCRIT 37.9 % (36-48); HEMOGLOBIN 13.1 g/dL (12.0-16.0); LYMPHOCYTES # (AUTO) 2.7 K/uL (2.5-16.5); LYMPHOCYTES % (AUTO) 35.8 % (20.5-51.1); MEAN CORPUSCULAR HEMOGLOBIN 30 pg (27-31); MEAN CORPUSCULAR HGB CONC 35 g/dL (33-37); MEAN CORPUSCULAR VOLUME 87.3 fL (80-94); MONOCYTES # (AUTO) 0.4 K/uL (0.8-1.0); MONOCYTES % (AUTO) 4.6 % (1.7-9.3); NEUTROPHILS # (AUTO) 4.4 K/uL (1.8-7.7); NEUTROPHILS % (AUTO) 57.3 % (42.2-75.2); PLATELET COUNT (AUTO) 310 K/uL (140-450); RED BLOOD CELL COUNT(AUTO) 4.35 MIL/uL (4.20-5.40); RED CELL DISTRIBUTION WIDTH 13.3 % (11.6-13.7); WHITE BLOOD COUNT (AUTO) 7.6 K/uL (4.8-10.8)
[2022-12-01 08:56] LABS: APPEARANCE,URINE CLEAR (CLEAR); BILIRUBIN,URINE NEGATIVE (NEGATIVE); BLOOD, URINE 3+ (NEGATIVE); COLOR,URINE YELLOW (YELLOW); LEUKOCYTE ESTERASE ,URINE NEGATIVE (NEGATIVE); NITRITE, URINE NEGATIVE (NEGATIVE); PROTEIN,URINE NEGATIVE (NEGATIVE); UGLUCOSE NEGATIVE (NEGATIVE); UROBILINOGEN,URINE 0.2 EU/dL (0.2 - 1)
[2022-12-01 09:00] LABS: ALBUMIN 3.4 g/dL (3.4-5.0); ANION GAP 11.9 (8-16); CALCIUM 8.8 mg/dL (8.5-10.1); CARBON DIOXIDE 25.7 mmol/L (21-32); CREATININE 0.7 mg/dL (0.6-1.3); POTASSIUM 3.6 mmol/L (3.5-5.1); TOTAL BILIRUBIN 0.6 mg/dL (0.0-1.0); TOTAL PROTEIN, SERUM 7.4 g/dL (6.4-8.2)
[2022-12-01 09:16] LABS: WBC,URINE 0-5 /HPF (0-5)
[2022-12-01 09:17] LABS: BACTERIA,URINE OCCASSIONAL /HPF (None Seen); SQUAMOUS EPITHELIAL CELL,UR 4-10 (MOD) /LPF (0-3 (FEW))
[2022-12-01] MEDS ORDERED: ONDA-188 PO (10:16)
[2022-12-01] MEDS ORDERED: SULF-59 PO (10:16)
[2022-12-01] MEDS ORDERED: IBUP-2213 PO (10:16)
[2022-12-01 10:50] VITALS: BP 109/75; PULSE 81; RESP 16; TEMP 97.4; O2SAT 98
== END 2022-12-01 10:50 | disposition home or self-care (01) ==
LOC: MED 08:00
DX: R31.9 Hematuria, unspecified (principal); N83.202 Unspecified ovarian cyst, left side; Z79.2 Long term (current) use of antibiotics; Z79.899 Other long term (current) drug therapy; Z79.1 Long term (current) use of non-steroidal anti-inflammatories (NSAID)
CPT/HCPCS: 36415; 74176; 80053; 81001; 81025; 83690; 85025; 87086; 96374; 96375; 99285; J1885; J2405; J7030

== ENCOUNTER 2022-12-06 16:18 | Emergency (ER) | payer MEDICAID ==
[~2022-12-06] VITALS: Ht 162.6 cm; Wt 98.4 kg
[2022-12-06 16:23] VITALS: BP 139/73; PULSE 80; RESP 16; TEMP 98.2; O2SAT 98
[2022-12-06] MEDS ORDERED: KETOROLAC 60 MG/2 ML VIAL IM ONE (18:15)
[2022-12-06 18:21] LABS: BASOPHILS % (AUTO) 0.5 % (0.0-2.0); EOSINOPHILS # (AUTO) 0.1 K/uL (0-0.4); EOSINOPHILS % (AUTO) 1.7 % (0.0-4.0); HEMATOCRIT 38.2 % (36-48); HEMOGLOBIN 12.9 g/dL (12.0-16.0); LYMPHOCYTES # (AUTO) 4.1 K/uL (2.5-16.5); LYMPHOCYTES % (AUTO) 47.8 % (20.5-51.1); MEAN CORPUSCULAR HEMOGLOBIN 30 pg (27-31); MEAN CORPUSCULAR HGB CONC 34 g/dL (33-37); MEAN CORPUSCULAR VOLUME 88.3 fL (80-94); MONOCYTES # (AUTO) 0.4 K/uL (0.8-1.0); MONOCYTES % (AUTO) 4.7 % (1.7-9.3); NEUTROPHILS # (AUTO) 3.9 K/uL (1.8-7.7); NEUTROPHILS % (AUTO) 45.3 % (42.2-75.2); PLATELET COUNT (AUTO) 337 K/uL (140-450); RED BLOOD CELL COUNT(AUTO) 4.32 MIL/uL (4.20-5.40); RED CELL DISTRIBUTION WIDTH 13.3 % (11.6-13.7); WHITE BLOOD COUNT (AUTO) 8.6 K/uL (4.8-10.8)
[2022-12-06 18:33] LABS: APPEARANCE,URINE CLEAR (CLEAR); BILIRUBIN,URINE NEGATIVE (NEGATIVE); BLOOD, URINE NEGATIVE (NEGATIVE); COLOR,URINE YELLOW (YELLOW); LEUKOCYTE ESTERASE ,URINE NEGATIVE (NEGATIVE); NITRITE, URINE NEGATIVE (NEGATIVE); PROTEIN,URINE NEGATIVE (NEGATIVE); UGLUCOSE NEGATIVE (NEGATIVE); UROBILINOGEN,URINE 0.2 EU/dL (0.2 - 1)
[2022-12-06 18:51] LABS: ALBUMIN 3.6 g/dL (3.4-5.0); ANION GAP 10.5 (8-16); CALCIUM 8.9 mg/dL (8.5-10.1); CARBON DIOXIDE 27.4 mmol/L (21-32); CREATININE 0.8 mg/dL (0.6-1.3); POTASSIUM 3.9 mmol/L (3.5-5.1); TOTAL BILIRUBIN 0.3 mg/dL (0.0-1.0); TOTAL PROTEIN, SERUM 7.6 g/dL (6.4-8.2)
[2022-12-06] MEDS ORDERED: CYCL-711 PO (19:12)
[2022-12-06] MEDS ORDERED: MELO-174 PO (19:12)
== END 2022-12-06 19:49 | disposition home or self-care (01) ==
LOC: MED 16:18
DX: M54.9 Dorsalgia, unspecified (principal); R10.9 Unspecified abdominal pain; Z79.899 Other long term (current) drug therapy; Z79.2 Long term (current) use of antibiotics; Z79.1 Long term (current) use of non-steroidal anti-inflammatories (NSAID)
CPT/HCPCS: 36415; 80053; 81003; 83690; 85025; 96372; 99283; J1885

== ENCOUNTER 2023-01-02 08:15 | Emergency (ER) | payer MEDICAID ==
[~2023-01-02] VITALS: Ht 165.1 cm; Wt 101.2 kg
[~2023-01-02 08:15] MED LIST changes: +CYCL-711 PO; +MELO-174 PO
[2023-01-02 08:44] VITALS: BP 123/84; PULSE 84; RESP 18; TEMP 97.7; O2SAT 99
[2023-01-02] MEDS ORDERED: NACL 0.9% 1,000 ML IV ONE (09:15)
[2023-01-02] MEDS ORDERED: ONDANSETRON 4 MG/2 ML VIAL IVP ONE (09:15)
[2023-01-02] MEDS ORDERED: KETOROLAC 30 MG/ML VIAL IVP ONE (09:15)
[2023-01-02 09:39] VITALS: BP 123/84; PULSE 84; RESP 18; TEMP 97.7; O2SAT 99
[2023-01-02 10:18] LABS: APPEARANCE,URINE CLEAR (CLEAR); BILIRUBIN,URINE NEGATIVE (NEGATIVE); BLOOD, URINE 1+ (NEGATIVE); COLOR,URINE YELLOW (YELLOW); LEUKOCYTE ESTERASE ,URINE NEGATIVE (NEGATIVE); NITRITE, URINE NEGATIVE (NEGATIVE); PROTEIN,URINE NEGATIVE (NEGATIVE); UGLUCOSE NEGATIVE (NEGATIVE); UROBILINOGEN,URINE 0.2 EU/dL (0.2 - 1)
[2023-01-02] MEDS ORDERED: ONDANSETRON 4 MG/2 ML VIAL ONE (10:27)
[2023-01-02] MEDS ORDERED: KETOROLAC 30 MG/ML VIAL ONE (10:27)
[2023-01-02 10:33] LABS: BASOPHILS # (AUTO) 0.1 K/uL (0.00-0.22); BASOPHILS % (AUTO) 1.5 % (0.0-2.0); EOSINOPHILS # (AUTO) 0.1 K/uL (0-0.4); EOSINOPHILS % (AUTO) 1.2 % (0.0-4.0); HEMATOCRIT 37.9 % (36-48); LYMPHOCYTES # (AUTO) 2.8 K/uL (2.5-16.5); MEAN CORPUSCULAR HEMOGLOBIN 30 pg (27-31); MEAN CORPUSCULAR HGB CONC 34 g/dL (33-37); MEAN CORPUSCULAR VOLUME 88.3 fL (80-94); MONOCYTES # (AUTO) 0.4 K/uL (0.8-1.0); MONOCYTES % (AUTO) 5.4 % (1.7-9.3); NEUTROPHILS # (AUTO) 3.2 K/uL (1.8-7.7); NEUTROPHILS % (AUTO) 48.9 % (42.2-75.2); PLATELET COUNT (AUTO) 311 K/uL (140-450); RED BLOOD CELL COUNT(AUTO) 4.29 MIL/uL (4.20-5.40); RED CELL DISTRIBUTION WIDTH 13.1 % (11.6-13.7); WHITE BLOOD COUNT (AUTO) 6.6 K/uL (4.8-10.8)
[2023-01-02 10:33] LABS: BACTERIA,URINE FEW /HPF (None Seen); SQUAMOUS EPITHELIAL CELL,UR 0-3 (FEW) /LPF (0-3 (FEW)); WBC,URINE 0-5 /HPF (0-5)
[2023-01-02 10:47] LABS: FLU A ANTIGEN negative (NEGATIVE); FLU B ANTIGEN NEGATIVE (NEGATIVE)
[2023-01-02 10:50] LABS: ALBUMIN 3.9 g/dL (3.4-5.0); ANION GAP 9.4 (8-16); CALCIUM 8.9 mg/dL (8.5-10.1); CARBON DIOXIDE 25.6 mmol/L (21-32); CREATININE 0.7 mg/dL (0.6-1.3); TOTAL BILIRUBIN 0.9 mg/dL (0.0-1.0); TOTAL PROTEIN, SERUM 8.3 g/dL (6.4-8.2)
[2023-01-02] MEDS ORDERED: ONDA-188 SL (11:08)
[2023-01-02] MEDS ORDERED: IBUP-2218 PO (11:08)
== END 2023-01-02 11:19 | disposition home or self-care (01) ==
LOC: MED 08:15
DX: A08.4 Viral intestinal infection, unspecified (principal); Z20.822 Contact with and (suspected) exposure to COVID-19; G43.909 Migraine, unspecified, not intractable, without status migrainosus; Z79.899 Other long term (current) drug therapy
CPT/HCPCS: 36415; 80053; 81001; 81025; 85025; 87426; 87804; 96361; 96374; 96375; 99284; J1885; J2405; J7030

== ENCOUNTER 2023-02-27 07:48 | Emergency (ER) | payer MEDICAID ==
[~2023-02-27] VITALS: Ht 165.1 cm; Wt 102.1 kg
[2023-02-27 08:02] VITALS: BP 121/69; PULSE 79; RESP 20; TEMP 97.5; O2SAT 100
[2023-02-27] MEDS ORDERED: KETOROLAC 30 MG/ML VIAL IM ONE (08:20)
[2023-02-27] MEDS ORDERED: ACETAMINOPHEN EXTRA STRENGTH 500 MG TAB PO ONE (08:20)
[2023-02-27 09:45] VITALS: BP 121/69; PULSE 79; RESP 20; TEMP 97.5; O2SAT 100
== END 2023-02-27 09:45 | disposition home or self-care (01) ==
LOC: MED 07:48
DX: R07.89 Other chest pain (principal); R07.81 Pleurodynia; Z79.899 Other long term (current) drug therapy
CPT/HCPCS: 71250; 96372; 99285; J1885

== ENCOUNTER 2023-03-17 08:18 | Emergency (ER) | payer MEDICAID ==
[~2023-03-17] VITALS: Ht 165.1 cm; Wt 102.1 kg
[2023-03-17 08:34] VITALS: BP 118/79; PULSE 88; RESP 18; TEMP 97.2; O2SAT 97
[2023-03-17] MEDS ORDERED: ONDA-188 SL (09:07)
[2023-03-17] MEDS: ONDANSETRON 4 MG ODT PO ONE (09:23)
[2023-03-17] MEDS: DICYCLOMINE 20 MG/2 ML VIAL IM ONE (09:26)
== END 2023-03-17 09:42 | disposition home or self-care (01) ==
LOC: MED 08:18
DX: A08.4 Viral intestinal infection, unspecified (principal); Z79.899 Other long term (current) drug therapy; Z79.1 Long term (current) use of non-steroidal anti-inflammatories (NSAID); Z79.2 Long term (current) use of antibiotics
CPT/HCPCS: 81025; 96372; 99283; J0500; Q0162

== ENCOUNTER 2023-04-07 08:15 | Emergency (ER) | payer MEDICAID, OTHER ==
[~2023-04-07] VITALS: Ht 165.1 cm; Wt 102.1 kg
[2023-04-07 08:20] VITALS: BP 117/72; PULSE 77; RESP 18; TEMP 97.8; O2SAT 100
[2023-04-07] MEDS ORDERED: CYCL-711 PO (08:41)
[2023-04-07] MEDS ORDERED: NAPR-1704 PO (08:41)
[2023-04-07] MEDS ORDERED: LID5T TP (08:41)
== END 2023-04-07 08:53 | disposition home or self-care (01) ==
LOC: MED 08:15
DX: M54.41 Lumbago with sciatica, right side (principal); Z79.899 Other long term (current) drug therapy; Z79.1 Long term (current) use of non-steroidal anti-inflammatories (NSAID); Z79.2 Long term (current) use of antibiotics
CPT/HCPCS: 99283

== ENCOUNTER 2023-07-22 09:30 | Emergency (ER) | payer OTHER ==
[~2023-07-22] VITALS: Ht 165.1 cm; Wt 95.3 kg
[~2023-07-22 09:30] MED LIST changes: +LID5T TP; +NAPR-1704 PO; +NAPR-337 PO; -NAPR-54 PO
[2023-07-22 09:31] VITALS: BP 119/67; PULSE 74; RESP 18; TEMP 97.7; O2SAT 97
[2023-07-22 10:31] LABS: FLU B ANTIGEN negative (NEGATIVE)
[2023-07-22 10:39] LABS: FLU A ANTIGEN POSITIVE (NEGATIVE)
[2023-07-22] MEDS ORDERED: ONDA-188 PO (11:04)
[2023-07-22] MEDS: ONDANSETRON 4 MG ODT PO ONE (11:06)
[2023-07-22 11:14] VITALS: BP 121/70; PULSE 78; RESP 18; TEMP 36.50292; O2SAT 99
== END 2023-07-22 11:14 | disposition home or self-care (01) ==
LOC: MED 09:30
DX: J10.1 Influenza due to other identified influenza virus with other respiratory manifestations (principal); Z20.822 Contact with and (suspected) exposure to COVID-19; Z90.49 Acquired absence of other specified parts of digestive tract; Z79.1 Long term (current) use of non-steroidal anti-inflammatories (NSAID); Z79.2 Long term (current) use of antibiotics; Z79.899 Other long term (current) drug therapy
CPT/HCPCS: 81025; 87426; 87804; 99283; Q0162

== ENCOUNTER 2023-09-28 10:35 | Emergency (ER) | payer OTHER ==
[~2023-09-28] VITALS: Ht 165.1 cm; Wt 99.9 kg
[2023-09-28 10:50] VITALS: BP 117/76; PULSE 82; RESP 17; TEMP 97.7; O2SAT 96
[2023-09-28] MEDS: KETOROLAC 30 MG/ML VIAL IM ONE (11:32)
[2023-09-28] MEDS ORDERED: IBUP-2213 PO (12:28)
[2023-09-28 13:11] VITALS: BP 117/76; PULSE 82; RESP 17; TEMP 97.7; O2SAT 96
== END 2023-09-28 13:13 | disposition home or self-care (01) ==
LOC: MED 10:35
DX: S93.402A Sprain of unspecified ligament of left ankle, initial encounter (principal); M72.2 Plantar fascial fibromatosis; Z79.899 Other long term (current) drug therapy; X58.XXXA Exposure to other specified factors, initial encounter; Y92.89 Other specified places as the place of occurrence of the external cause; Y93.89 Activity, other specified; Y99.8 Other external cause status
CPT/HCPCS: 73610; 73650; 81025; 96372; 99284; J1885

== ENCOUNTER 2023-10-19 07:44 | Emergency (ER) | payer OTHER ==
[~2023-10-19] VITALS: Ht 165.1 cm; Wt 98.7 kg
[~2023-10-19 07:44] MED LIST changes: -ACET-10509 PO; +ACET500T99 PO
[2023-10-19 07:48] VITALS: BP 121/81; PULSE 74; RESP 18; TEMP 97.7; O2SAT 95
[2023-10-19] MEDS: KETOROLAC 60 MG/2 ML VIAL IM ONE (08:49)
[2023-10-19] MEDS ORDERED: IBUP-2213 PO (09:16)
[2023-10-19] MEDS ORDERED: ACET-8905 PO (09:16)
[2023-10-19 09:25] VITALS: BP 121/81; PULSE 74; RESP 18; TEMP 97.7; O2SAT 95
== END 2023-10-19 09:28 | disposition home or self-care (01) ==
LOC: MED 07:44
DX: M79.672 Pain in left foot (principal); R03.0 Elevated blood-pressure reading, without diagnosis of hypertension; Z90.49 Acquired absence of other specified parts of digestive tract; Z79.1 Long term (current) use of non-steroidal anti-inflammatories (NSAID); Z79.2 Long term (current) use of antibiotics; Z79.899 Other long term (current) drug therapy
CPT/HCPCS: 96372; 99283; J1885

== ENCOUNTER 2023-11-02 07:35 | Emergency (ER) | payer OTHER ==
[~2023-11-02] VITALS: Ht 165.1 cm; Wt 98.6 kg
[~2023-11-02 07:35] MED LIST changes: +ACET-8905 PO
[2023-11-02 07:47] VITALS: BP 128/85; PULSE 80; RESP 16; TEMP 97.1; O2SAT 97
[2023-11-02] MEDS: LIDOCAINE 5% 1 EA PATCH TP ONE (08:44)
[2023-11-02] MEDS: IBUPROFEN 600 MG TAB PO ONE (08:44)
[2023-11-02 09:49] VITALS: BP 137/60; PULSE 78; RESP 19; O2SAT 99
== END 2023-11-02 09:50 | disposition home or self-care (01) ==
LOC: MED 07:35
DX: S29.011A Strain of muscle and tendon of front wall of thorax, initial encounter (principal); R03.0 Elevated blood-pressure reading, without diagnosis of hypertension; Z79.1 Long term (current) use of non-steroidal anti-inflammatories (NSAID); Z79.899 Other long term (current) drug therapy; W01.0XXA Fall on same level from slipping, tripping and stumbling without subsequent striking against object, initial encounter; Y93.89 Activity, other specified; Y92.89 Other specified places as the place of occurrence of the external cause; Y99.8 Other external cause status
CPT/HCPCS: 71100; 99283

== ENCOUNTER 2023-12-17 08:01 | Emergency (ER) | payer OTHER ==
[~2023-12-17] VITALS: Ht 165.1 cm; Wt 98.4 kg
[2023-12-17 08:05] VITALS: BP 125/83; PULSE 76; RESP 16; TEMP 98.6; O2SAT 97
[2023-12-17 08:33] VITALS: O2SAT 97
[2023-12-17] MEDS: KETOROLAC 30 MG/ML VIAL IVP ONE (08:45)
[2023-12-17 09:03] LABS: BASOPHILS % (AUTO) 0.7 % (0.0-2.0); EOSINOPHILS # (AUTO) 0.1 K/uL (0-0.4); EOSINOPHILS % (AUTO) 1.4 % (0.0-4.0); HEMOGLOBIN 13.6 g/dL (12.0-16.0); LYMPHOCYTES # (AUTO) 2.6 K/uL (2.5-16.5); LYMPHOCYTES % (AUTO) 43.2 % (20.5-51.1); MEAN CORPUSCULAR HEMOGLOBIN 30 pg (27-31); MEAN CORPUSCULAR HGB CONC 34 g/dL (33-37); MEAN CORPUSCULAR VOLUME 88.1 fL (80-94); MONOCYTES # (AUTO) 0.3 K/uL (0.8-1.0); MONOCYTES % (AUTO) 4.8 % (1.7-9.3); NEUTROPHILS % (AUTO) 49.9 % (42.2-75.2); PLATELET COUNT (AUTO) 322 K/uL (140-450); RED BLOOD CELL COUNT(AUTO) 4.54 MIL/uL (4.20-5.40); RED CELL DISTRIBUTION WIDTH 13.1 % (11.6-13.7); WHITE BLOOD COUNT (AUTO) 5.9 K/uL (4.8-10.8)
[2023-12-17 09:05] LABS: APPEARANCE,URINE CLEAR (CLEAR); BILIRUBIN,URINE NEGATIVE (NEGATIVE); BLOOD, URINE NEGATIVE (NEGATIVE); COLOR,URINE YELLOW (YELLOW); LEUKOCYTE ESTERASE ,URINE NEGATIVE (NEGATIVE); NITRITE, URINE NEGATIVE (NEGATIVE); PH,URINE 6.5 (5.0-9.0); PROTEIN,URINE NEGATIVE (NEGATIVE); UGLUCOSE NEGATIVE (NEGATIVE); UROBILINOGEN,URINE 0.2 EU/dL (0.2 - 1)
[2023-12-17 09:20] LABS: CALCIUM 8.7 mg/dL (8.5-10.1); CARBON DIOXIDE 27.8 mmol/L (21-32); CREATININE 0.7 mg/dL (0.6-1.3); POTASSIUM 3.8 mmol/L (3.5-5.1)
[2023-12-17 09:22] LABS: ALBUMIN 3.6 g/dL (3.4-5.0); BILIRUBIN,DIRECT 0.1 mg/dL (0.0-0.3); TOTAL BILIRUBIN 0.7 mg/dL (0.0-1.0); TOTAL PROTEIN, SERUM 7.6 g/dL (6.4-8.2)
[2023-12-17 09:58] LABS: FLU B ANTIGEN negative (NEGATIVE)
[2023-12-17 10:07] LABS: FLU A ANTIGEN POSITIVE (NEGATIVE)
[2023-12-17 10:53] VITALS: O2SAT 98
[2023-12-17] MEDS ORDERED: IBUP-2213 PO (11:02)
[2023-12-17] MEDS ORDERED: ONDA-188 SL (11:02)
[2023-12-17 11:11] VITALS: BP 111/86; PULSE 71; RESP 19; TEMP 98.6; O2SAT 98
== END 2023-12-17 11:14 | disposition home or self-care (01) ==
LOC: MED 08:01
DX: J10.1 Influenza due to other identified influenza virus with other respiratory manifestations (principal); Z20.822 Contact with and (suspected) exposure to COVID-19; Z79.899 Other long term (current) drug therapy; Z90.49 Acquired absence of other specified parts of digestive tract
CPT/HCPCS: 36415; 80048; 80076; 81003; 81025; 83690; 85025; 87426; 87804; 96374; 99283; J1885

== ENCOUNTER 2023-12-21 07:39 | Emergency (ER) | payer OTHER ==
[~2023-12-21] VITALS: Ht 165.1 cm; Wt 98.1 kg
[2023-12-21 07:46] VITALS: BP 127/85; PULSE 95; RESP 18; TEMP 97.8; O2SAT 98
[2023-12-21 07:57] VITALS: BP 117/79; PULSE 95; RESP 18; TEMP 97.8; O2SAT 99
[2023-12-21] MEDS ORDERED: METO-485 PO (08:14)
[2023-12-21] MEDS: METOCLOPRAMIDE 10 MG/2 ML INJ VIAL IM ONE (08:23)
== END 2023-12-21 08:38 | disposition home or self-care (01) ==
LOC: MED 07:39
DX: R11.10 Vomiting, unspecified (principal); R03.0 Elevated blood-pressure reading, without diagnosis of hypertension; Z79.899 Other long term (current) drug therapy
CPT/HCPCS: 93005; 96372; 99283; J2765